=== PATIENT | female | born 1995 | race Caucasian/White ===

== ENCOUNTER 2016-06-03 22:39 | Emergency (ER) | payer OTHER ==
[~2016-06-03] VITALS: Ht 152.4 cm; Wt 66.8 kg
[~2016-06-03 22:39] MED LIST: HYDR-4003 PO
[2016-06-03 22:40] VITALS: BP 155/108; PULSE 111; RESP 20; O2SAT 96
[2016-06-04] MEDS ORDERED: 0.9% Sodium Chloride 1,000 ML IV ONE (01:13)
--- NOTE | 2016-06-04 01:14 | ED.REPORT ---
HPI-General Illness Date of Service Jun 04, 2016 ED Provider: Garfield Palm MD A 20 year old female with a history of Depo-Provera contraception injections presents to the ED complaining of right sided pelvic pain radiating into her low back. The pain has been intermittently present for several weeks. The pt's symptoms began on 04/24/2016 when her menstrual period began. This was characterized by abnormally painful cramps, clots, nausea, and bleeding for several weeks. The pt stopped bleeding two weeks ago, but her pain and nausea has persisted. The pain was especially acute tonight. The pt admits to decreased appetite in the last few days, subjective fever, and increased fluid intake, but denies vomiting. The pt had her second Depo shot four days ago. She was also diagnosed with a yeast infection at that time. The pt has an ultrasound scheduled on 06/07/2016 Nursing Notes Stated Complaint: DIFFICULTY BREATHING/BACK PAIN Chief Complaint: Respiratory Distress Nursing Notes Reviewed: Yes Allergies: Coded Allergies: Penicillins (Verified Allergy, Unknown, 06/03/16) Sulfa (Sulfonamide Antibiotics) (Verified Allergy, Unknown, 06/03/16) Scheduled PRN Hydrocodone-Acetaminophen 5-325 mg (Hydrocodone-Acetaminophen 5-325 mg) 1 Each Tablet 1 TABLET PO Q6H PRN PRN For Pain Naproxen (Naprosyn) 500 Mg Tablet 500 MG PO BID PRN PRN For Pain Ondansetron ODT (Ondansetron ODT) 8 Mg Tab.rapdis 8 MG PO QID PRN PRN For Nausea Promethazine HCl (Phenergan) 25 Mg Supp.rect 25 MG RC TID PRN PRN For Nausea Tramadol (Tramadol) 50 Mg Tablet 100 MG PO Q6H PRN PRN For Pain General Time Seen by : 01:14 Chief Complaint Other (Pelvic pain) Hx Obtained From: Patient Arrived By: Walk-in Sudden in Onset?: No Onset Occurred: More than a week ago... Recent Healthcare: No recent hospitalization, Recent doctor visit Similar Sx Previous: No Past Medical History Past Medical History Low back pain Past Surgical History None reported Smoking History Never Smoker Social History Alcohol Use: Denies alcohol use Drug Use: Denies drug use Ambulatory Status Independent Review of Systems increased fluid intake decreased appetite Full Review of Systems Constitutional: Reports: Fever Cardiovascular: Denies: Chest pain GI: Reports: Nausea, Denies: Vomiting Female: Reports: Pelvic pain Musculoskeletal: Reports: Back pain, Denies: Neck pain Skin: Denies Rash Complete sys rev & neg: except as marked. Physical Exam Vital Signs Vital Signs Date Time Temp Pulse Resp B/P Pulse Ox O2 Delivery O2 Flow Rate FiO2 06/04/16 05:31 86 16 100/66 98 Room Air 06/04/16 03:53 86 16 122/78 100 Room Air 06/03/16 22:40 37.2 111 20 155/108 96 Room Air Initial VS: Reviewed General/Constitutional: Awake, Alert Head / Eyes: Atraumatic, Normocephalic, PERRL, EOMI ENT: Atraumatic, Airway patent, Mucous membranes moist Neck: Atraumatic, Supple, Full range of motion Respiratory / Chest: Atraumatic, Breath sounds NL, Breath sounds = bilat, No respiratory distress Cardiovascular: Heart rate NL, Regular rhythm, Heart sounds NL Abdomen: Atraumatic tender RLQ guarding Back: Atraumatic, Full range of motion Upper Extremities Upper Extremity / MS: Atraumatic, Full range of motion Lower Extremity / Pelvis / MS: Atraumatic, Full range of motion Skin: Atraumatic, Color NL, No rash, Warm, Dry Female Genitourinary: Registered Route Associate present, Atraumatic, No cervical motion tend Pelvic Exam: Positive: Adnexal tenderness R moderate amount of white coloted discharge Neurologic: Oriented X3, Speech NL, No motor deficits, No sensory deficits Psychiatric: Affect NL, Mood NL Interpretation & Diagnostics Lab Results Interpretation Result Diagram: 06/04/16 0110 06/04/16 0110 Test 06/04/16 01:10 06/04/16 04:30 White Blood Count 11.8th/mm3 (3.8-10.1) Red Blood Count 4.69mil/mm3 (3.90-5.20) Hemoglobin 13.9g/dL (12.0-15.6) Hematocrit 41.5% (35.0-46.0) Mean Corpuscular Volume 88.5fL (81-100) Mean Corpuscular Hemoglobin 29.6pg (27.0-35.0) Mean Corpuscular Hemoglobin Concent 33.5% (32.0-37.0) Red Cell Distribution Width 13.4% (12.3-15.4) Platelet Count 222bil/L (150-400) Neutrophils (%) (Auto) 56.4% (40-74) Lymphocytes (%) (Auto) 35.1% (14-46) Monocytes (%) (Auto) 7.4% (4-12) Eosinophils (%) (Auto) 0.8% (0-5) Basophils (%) (Auto) 0.2% (0-3) Urine Color Straw (YELLOW) Urine Appearance Clear (CLEAR,HAZY) Urine pH 6.5 (5.0-8.0) Urine Specific [place] <1.005 (1.003-1.035) Urine Protein Negativemg/dL (NEG,TRACE) Urine Glucose (UA) Negativemg/dL (NEGATIVE) Urine Ketones Tracemg/dL (NEGATIVE) Urine Occult Blood Negative (NEGATIVE) Urine Nitrite Negative (NEGATIVE) Urine Bilirubin Negative (NEGATIVE) Urine Urobilinogen Normalmg/dL (NORMAL) Urine Leukocyte Esterase Negative (NEGATIVE) Urine RBC 0-2/hpf (0-2) Urine WBC 0-5/hpf (0-5) Urine Epithelial Cells Few/hpf (NONE-MOD) Urine Crystals None seen (NONE SEEN) Urine Bacteria Few/hpf (NONE-FEW) Urine Hyaline Casts None/lpf (NONE) Urine Granular Casts None seen (NONE SEEN) Urine Waxy Casts None seen (NONE SEEN) Urine Red Blood Cell Casts None seen (NONE SEEN) Urine White Blood Cell Casts None seen (NONE SEEN) Urine Mucus None seen (None Seen) Urine Trichomonas None seen (NONE SEEN) Urine Yeast None (NONE SEEN) Urinalysis Comment None Urine Culture Reflexed Not indicated Sodium Level 140mEq/L (134-144) Potassium Level 3.8mEq/L (3.5-5.2) Chloride Level 102mEq/L (97-108) Carbon Dioxide Level 20mmol/L (18-29) Blood Urea Nitrogen 10mg/dL (6-20) Creatinine 0.81mg/dL (0.57-1.00) Estimat Glomerular Filtration Rate 128mL/min (>59) Glucose Level 88mg/dL (60-99) Calcium Level 9.2mg/dL (8.5-10.1) Magnesium Level 2.0mg/dL (1.6-2.6) Total Bilirubin 0.4mg/dL (0.0-1.2) Aspartate Amino Transf (AST/SGOT) 19U/L (0-50) Alanine Aminotransferase (ALT/SGPT) 12U/L (0-32) Alkaline Phosphatase 44U/L (25-150) Total Protein 7.2g/dL (6.4-8.4) Albumin 4.6g/dL (3.4-5.0) Lipase 21U/L (13-60) Hold Vera Top Tube Received (Received) CT Abd / Pelvis Interpretation CONCLUSION: The appendix is normal but there are some borderline enlarged lymph nodes in the right lower quadrant which raise the possibility of mesenteric adenitis. There is also a 15 mm cyst in the right ovary. Interpretation / Wet Read by: Interpret - Radiologist Re-Eval/Medical Decision Med Decision/Clinical Course 40-year-old presents with right-sided abdominal pain radiating to her low right back. Urine is unremarkable. Exam is fairly tender however. Pelvic exam shows no particular cervical tenderness or significant discharge. Right adnexa is tender. Scan reveals normal appendix but mesenteric adenopathy and moderate ovarian cyst without evidence of bleeding. Home with tramadol, Naprosyn, and plan for follow-up with PCP. Source of Hx: Old records Time of Eval: 03:56 Re-Evaluation/Progress Note: Pt rechecked, who is nauseated again. Radiology results are discussed. Time of Eval: 04:21 Patient Status: Condition improved Re-Evaluation/Progress Note: Pt rechecked and pelvic exam is performed. The plan for discharge is discussed. The pt understands and agrees with the plan. All questions are addressed at this time. Counseled Regarding: Diagnosis, Lab results, Need for follow-up, When/why to return to ED Discharge & Departure Primary Impression: Mesenteric adenitis Additional Impression: Ovarian cyst Disposition: Home Discharge Condition All VS Reviewed: Yes Condition: Stable Patient Instructions: Acute Abdominal Pain (ED), Ovarian Cyst (ED) Additional Instructions: You have no evidence of appendicitis on her CAT scan. There are lymph nodes in your right lower quadrant that are probably the cause of her pain. Given incidental ovarian cyst without evidence of bleeding. No evidence of bacterial infection, but awaiting cultures of her cervix. Follow-up with your doctor in the office. Naprosyn twice daily. Use of tramadol with additional needed. Zofran if needed for nausea. Phenergan suppository if additional needed for nausea. Referrals: Gill Giang PA-C (PCP) Yris Attestation Portions of this note were transcribed by John Dover. I, Dr. Palm personally performed the history, physical exam and medical decision-making; I reviewed and confirmed the accuracy of the information in the transcribed note. Signed by: Yris Barragan, 06/04/2016 and 0500. copies to: Gill Giang PA-C, Christopher W MD Jun 04, 2016 01:14 JOHN DOVER Jun 04, 2016 02:32
[2016-06-04] MEDS ORDERED: Ondansetron 2 mg/mL 2 mL Inj IVPUSH ONE ×2 (01:15→03:45)
[2016-06-04] MEDS ORDERED: Pantoprazole 4 mg/mL 10 mL Inj IVPUSH ONE (01:15)
[2016-06-04] MEDS: HYDROmorphone 0.5 mg/0.5 mL iSecure Syringe IVPUSH PRN ×2 (01:26→02:54)
[2016-06-04 01:27] LABS: BASOPHILS % (AUTO) 0.2 % (0-3); EOSINOPHILS % (AUTO) 0.8 % (0-5); MONOCYTES % (AUTO) 7.4 % (4-12); Mean Corpuscular Hemoglobin 29.6 pg (27.0-35.0); Mean Corpuscular Volume 88.5 fL (81-100); NEUTROPHILS % (AUTO) 56.4 % (40-74); Platelet Count 222 bil/L (150-400)
[2016-06-04 01:34] LABS: APPEARANCE,URINE CLEAR (CLEAR,HAZY); COLOR,URINE STRAW (YELLOW)
[2016-06-04 01:35] LABS: OCCULT BLOOD,URINE NEGATIVE (NEGATIVE); PH,URINE 6.5 (5.0-8.0); UROBILINOGEN,URINE NORMAL (NORMAL)
[2016-06-04 03:53] VITALS: BP 122/78; PULSE 86; RESP 16; O2SAT 100
[2016-06-04] MEDS ORDERED: Promethazine Inj 12.5 MG in Dextrose 5%-Pha MIX 50 ML IV ONE (04:00)
[2016-06-04] MEDS ORDERED: NAPR500T PO (04:56)
[2016-06-04] MEDS ORDERED: PROM25SU46 RC (04:56)
[2016-06-04] MEDS ORDERED: ONDA8TAB10 PO (04:56)
[2016-06-04] MEDS ORDERED: TRAM50TA2 PO (04:56)
[2016-06-04 05:31] VITALS: BP 100/66; PULSE 86; RESP 16; O2SAT 98
--- NOTE | 2016-06-04 10:33 | DRSVH ---
PROCEDURE: CT ABDOMEN AND PELVIS WITH CONTRAST ([id number]) INDICATIONS: rlq abdo pain TECHNIQUE: After the administration of intravenous contrast, 5 mm thick sections acquired from the diaphragm to the symphysis. 5 mm coronal and sagittal reformats were acquired. For radiation dose reduction, the following was used: automated exposure control, adjustment of mA and/or kV according to patient siz e. COMPARISON: None. FINDINGS: Image quality: Excellent. ABDOMEN: Lung bases: Lung bases are clear. Heart size is normal. Solid organs: Liver and spleen are normal in size and enhancement. Gallbladder is unremarkable. Bi liary system is non dilated. Pancreas enhances normally. No adrenal nodules. Kidneys demonstrate n ormal size, without hydronephrosis. The kidneys demonstrate bilateral cortical thinning. This is felt to account for the appearance of prominent medullary pyraminds. Peritoneum and bowel: Bowel loops are nonobstructive. There is a thickened appearance of the descend ing and sigmoid colon with incomplete distention. No free fluid or air. Appendix is unremarkable. Nodes and vessels: No retroperitoneal or mesenteric adenopathy by size criteria. Scattered subcenti meter lymph nodes are present in the right lower quadrant, largest measuring 7-8 mm. Aorta and infer ior vena cava are normal in size. Miscellaneous: Fat containing ventral hernia. There is mild distal esophageal thickening with small hiatal hernia. PELVIS: Genitourinary: Bladder wall thickness is normal. Miscellaneous: No inguinal hernias or adenopathy. Bones: No suspicious bony lesions. No vertebral body compression fractures. IMPRESSION: 1. Appendix is unremarkable. Clustered sub-centimeters lymph nodes are present in the right lower alex drant, suggestive of mesenteric adenitis. 2. Cortical renal thinning bilaterally, felt to account for the appearance of prominent medullary pyr aminds. This could be related to underlying renal disease. Recommend further evaluation of renal labo ratory values and other clinical indicators. 3. Thickened appearance of the descending and sigmoid colon, possibly related to incomplete distentio n. Dictated by: Isabel Yates M.D. on 06/04/2016 at 9:56 Approved by: Isabel Yates M.D. on 06/04/2016 at 10:31
== END 2016-06-04 05:14 | disposition home or self-care (01) ==
LOC: SED 22:40
DX: I88.0 Nonspecific mesenteric lymphadenitis (principal); N83.201 Unspecified ovarian cyst, right side; Z79.3 Long term (current) use of hormonal contraceptives; Z88.0 Allergy status to penicillin; Z88.2 Allergy status to sulfonamides
CPT/HCPCS: 36415; 74177; 80053; 81000; 81025; 83690; 83735; 85025; 87070; 87210; 87491; 87591; 96361; 96374; 96375; 96376; 99285; J1170; J1885; J2405; J2550; J7030; Q9967